=== PATIENT | female | born 1965 | race Caucasian/White ===

== ENCOUNTER 2021-11-29 16:18 | Emergency (ER) | payer SELFPAY ==
[~2021-11-29] VITALS: Ht 160 cm; Wt 56.6 kg
[2021-11-29] MEDS ORDERED: LORazepam 0.5 MG (ATIVAN) TABLET PO STA (16:45)
--- NOTE | 2021-11-29 16:49 | ED Psychosocial ---
General Chief Complaint: Psych/Social Disorder Stated Complaint: PANIC ATTACK Nursing Triage Note: PT AMB TO [facility] 8 WITH COMPLAINT OF ANXIETY. STATES TODAY SHE FEELS LIKE SHE CANT FUNCTION DUE TO HER ANXIETY. TAKES ANXIETY MEDS AT HOME. Source: patient Exam Limitations: no limitations (MOOSE VILLARREAL) History of Present Illness Date Seen by Provider: Nov 29, 2021 Time Seen by Provider: 16:46 Initial Comments Patient is a 56-year-old female with a history of anxiety, depression, PTSD who presents to ED for increased anxiety. She states she is concerned that she is having a panic attack. Woke up this morning feeling anxious. Not able to function at home secondary to the anxiety. She states she feels jittery, feels "foogy". She is currently on Abilify, Wellbutrin, remeron by physician at [facility]. Patient states that she has had similar type panic attacks in the past. She has no current pain. No hallucinations, thoughts of wanting to hurt herself or others. She is requesting some medication to help with her panic attack. She does not want to be evaluated by behavioral health. Denies any drug use or alcohol use. Denies chest pain, shortness of breath, nausea, vomiting, diarrhea (MOOSE VILLARREAL) Allergies and Home Medications Allergies Coded Allergies: No Known Drug Allergies (Unverified , 11/29/21) Patient Home Medication List Home Medication List Reviewed: Yes (MOOSE VILLARREAL) Hydroxyzine HCl (Hydroxyzine HCl) 50 Mg Tablet, 50 MG PO Q6H PRN for ANXIETY Prescribed by: CAMILLE JARRELL on 11/29/21 2376 Review of Systems Constitutional: No chills, No diaphoresis, No malaise, No weakness EENTM: No blurred vision, No double vision Respiratory: No cough, No dyspnea on exertion Cardiovascular: No edema Gastrointestinal: No abdominal pain, No diarrhea, No nausea, No vomiting Genitourinary: No decreased output Musculoskeletal: No back pain, No gout Psychiatric/Neurological: Denies Anxiety, Denies Depressed (MOOSE VILLARREAL) All Other Systems Reviewed Negative Unless Noted: Yes (MOOSE VILLARREAL) Past Rkjikab-Bczyky-Kqcwcv Hx Patient Social History Tobacco Use?: Yes Tobacco type used: Cigarettes Smoking Status: Current Everyday Smoker Use of E-Cig and/or Vaping dev: No Substance use?: Yes Substance type: Marijuana Alcohol Use?: No Pt feels they are or have been: No (MOOSE VILLARREAL) Physical Exam Vital Signs - First Documented 11/29/21 16:30 Pulse 87 Resp 16 B/P (MAP) 136/86 (103) Pulse Ox 99 O2 Delivery Room Air (DOROTEO ISIDRO MD) Capillary Refill : Less Than 3 Seconds (MOOSE VILLARREAL) Height, Weight, BMI Height: '" Weight: lbs. oz. kg; 22.00 BMI Method: General Appearance: WD/WN, no apparent distress HEENT: PERRL/EOMI, normal ENT inspection, TMs normal, pharynx normal Neck: non-tender, full range of motion Respiratory: chest non-tender, lungs clear, normal breath sounds, no respiratory distress, no accessory muscle use Cardiovascular: regular rate, rhythm, no edema, no gallop, no JVD Gastrointestinal: normal bowel sounds, non tender, soft, no organomegaly Extremities: normal range of motion, non-tender, normal inspection, no pedal edema, no calf tenderness Neurologic/Psychiatric: pharmaceutical officer II-XII nml as tested, no motor/sensory deficits, alert, normal mood/affect, oriented x 3 Appearance/Memory: appropriate appearance Behavior/Eye Contact: cooperative Thoughts/Hallucinations: normal thought pattern Skin: normal color, warm/dry Lymphatic: no adenopathy (MOOSE VILLARREAL) Progress/Results/Core Measures Results/Orders Vital Signs/I&O 11/29/21 11/29/21 16:30 18:09 Pulse 87 87 Resp 16 16 B/P (MAP) 136/86 (103) 136/86 Pulse Ox 99 99 O2 Delivery Room Air Room Air (DOROTEO ISIDRO MD) Blood Pressure Mean: 103 Departure Communication (PCP) Patient was tearful during exam. She states she woke up feeling anxious concern for panic attack. She reports similar symptoms in the past. She is currently on medication for PTSD, anxiety and depression. Patient has no suicidal homicidal thoughts. No active hallucinations. Denies any drug use or alcohol's. She has no chest pain, shortness of breath, fever, chills. Patient is cooperative. Patient appears in no acute distress. She is requesting some for her anxiety at this time. She was given a dose of Ativan 1 mg p.o. with resolution of symptoms. Did offer behavioral health assessment but patient states she will follow-up with here pcp ([facility]). Patient currently playing on her phone. She appears in no acute distress. Patient was observed and was smiling at discharge. Patient is strongly recommended to follow-up outpatient Richard with her PCP for further evaluation and medication adjustments as needed. If any worsening symptoms return back to ED for further evaluation. Patient at discharge was requesting something different to help with anxiety. Discussed with patient I do not typically prescribe medication for anxiety but may try hydroxyzine. But still she needs a follow-up with her [facility] for further evaluation. (MOOSE VILLARREAL) Impression Primary Impression: Anxiety Disposition: 01 HOME, SELF-CARE Condition: Stable Departure-Patient Inst. Decision time for Depature: 16:53 (MOOSE VILLARREAL) Referrals: [facility] Patient Instructions: Anxiety, Adult ED Add. Discharge Instructions: If continued having symptoms need to follow-up with [place] [facility]. All discharge instructions reviewed with patient and/or family. Voiced understanding. Scripts Hydroxyzine HCl (Hydroxyzine HCl) 50 Mg Tablet 50 MG PO Q6H PRN for ANXIETY, #12 TAB Prov: MOOSE VILLARREAL 11/29/21 ATTENDING PHYSICIAN NOTE: I was physically present as attending physician in the emergency department during the care of this patient, but I was not directly involved in the decision making or delivery of care for this patient. (DOROTEO ISIDRO MD) MOOSE VILLARREAL Nov 29, 2021 16:49 DOROTEO ISIDRO MD Nov 29, 2021 21:04
[2021-11-29] MEDS ORDERED: HYDR50TA76 PO (18:05)
[2021-11-29 18:09] VITALS: BP 136/86
== END 2021-11-29 18:09 | disposition home or self-care (01) ==
LOC: ER 16:22
DX: F41.0 Panic disorder [episodic paroxysmal anxiety] (principal); F43.10 Post-traumatic stress disorder, unspecified; F32.A Depression, unspecified; Z79.899 Other long term (current) drug therapy; F17.210 Nicotine dependence, cigarettes, uncomplicated
CPT/HCPCS: 99283

== ENCOUNTER 2021-12-01 14:01 | Emergency (ER) | payer SELFPAY ==
[~2021-12-01] VITALS: Ht 160 cm; Wt 54.0 kg
[~2021-12-01 14:01] MED LIST: DESV100T PO; HYDR50TA76 PO; TRZ50T PO
[2021-12-01 14:10] VITALS: BP 117/109
[2021-12-01] MEDS ORDERED: BUSP15TA60 PO (14:31)
--- NOTE | 2021-12-01 14:31 | ED Psychosocial ---
General Chief Complaint: Psych/Social Disorder Stated Complaint: ANXIETY Nursing Triage Note: ARRIVED VIA AMB WITH COMPLAINTS OF ANXIETY STARTING X2 DAYS AGO. Source: patient Exam Limitations: no limitations History of Present Illness Date Seen by Provider: Dec 01, 2021 Time Seen by Provider: 13:10 Initial Comments Patient is a 56-year-old female history of drug and alcohol abuse, 10 months clean also history of anxiety and depression presents with increasing anxiety over the last couple of days. Was last seen in the emergency department 2 days ago. Given a prescription for hydroxyzine she states she took 1 this morning but it did not help and she feels like it made it worse. She states "I am crawling out of my skin". She also states "I cannot function". She denies suicidal or homicidal ideation. She denies auditory or visual hallucinations. She is followed with [facility]. She was offered behavioral health assessment 2 days ago but declined. She was treated with 1 mg of Ativan in the ED and had improvement in symptoms. No recent illnesses, fevers, chills, chest pain, cough or congestion. No problems with bowel or bladder. She is requesting the same medication she was given 2 days ago. I offered to restart her on her BuSpar. She states she feels like she needs a larger dose. She was taken off BuSpar several months ago. All other review of systems reviewed and negative except as stated Timing/Duration: other (2 days) Severity: moderate Associated Symptoms: anxiety, impaired concentration Allergies and Home Medications Allergies Coded Allergies: No Known Drug Allergies (Unverified , 11/29/21) Patient Home Medication List Home Medication List Reviewed: Yes Buspirone HCl (Buspirone HCl) 15 Mg Tablet, 15 MG PO BID Prescribed by: ANGELY CLARKE on 12/01/21 1431 Hydroxyzine HCl (Hydroxyzine HCl) 50 Mg Tablet, 50 MG PO Q6H PRN for ANXIETY Prescribed by: CAMILLE JARRELL on 11/29/21 2176 Review of Systems Constitutional: see HPI EENTM: no symptoms reported Respiratory: no symptoms reported Cardiovascular: no symptoms reported Gastrointestinal: no symptoms reported Genitourinary: no symptoms reported Musculoskeletal: no symptoms reported Skin: no symptoms reported Psychiatric/Neurological: Anxiety, Emotional Problems All Other Systems Reviewed Negative Unless Noted: Yes Past Hxatqjr-Quujaf-Cjnalg Hx Patient Social History Smoking Status: Current Everyday Smoker Substance use?: No Alcohol Use?: No Immunizations Up To Date Second COVID19 Vaccination Sahil: UNKNOWN DATE COVID19 Vaccine [employer]: KALIEA Physical Exam Vital Signs - First Documented 12/01/21 14:10 Temp 35.7 Pulse 96 Resp 16 B/P (MAP) 117/109 (112) Pulse Ox 97 O2 Delivery Room Air Capillary Refill : Less Than 3 Seconds Height, Weight, BMI Height: '" Weight: lbs. oz. kg; 21.00 BMI Method: General Appearance: WD/WN, mild distress (anxious) HEENT: PERRL/EOMI Neck: full range of motion Respiratory: lungs clear, normal breath sounds, no respiratory distress, no accessory muscle use Cardiovascular: regular rate, rhythm Gastrointestinal: soft Extremities: normal range of motion, normal inspection Neurologic/Psychiatric: alert, oriented x 3 Appearance/Memory: appropriate appearance, appropriate insight, neat Behavior/Eye Contact: cooperative, good eye contact, normal speech Thoughts/Hallucinations: normal thought pattern, no apparent hallucination, other (ANXIOUS) Skin: normal color, warm/dry Progress/Results/Core Measures Results/Orders My Orders Orders - ANGELY CLARKE MD Buspirone Tablet (Buspar Tablet) (12/01/21 14:45) Alprazolam Tablet (Xanax Tablet) (12/01/21 14:32) Medications Given in ED Current Medications Medications Dose Ordered Sig/Marsha Route Start Time Stop Time Status Last Admin Dose Admin Buspirone HCl 15 mg ONCE ONCE PO 12/01/21 14:45 12/01/21 14:46 DC 12/01/21 14:50 15 MG Vital Signs/I&O 12/01/21 14:10 Temp 35.7 Pulse 96 Resp 16 B/P (MAP) 117/109 (112) Pulse Ox 97 O2 Delivery Room Air Blood Pressure Mean: 112 Progress Progress Note : Time: 15:19 Progress Note patient ambulated to the bathroom after meds. She states that she was feeling a little better. Nurse went to discharge her and noted the patient had eloped without discharge instructions or follow up information. Departure Impression Primary Impression: Anxiety Disposition: 07 AGAINST MEDICAL ADVICE Condition: Against Medical Advice Departure-Patient Inst. Decision time for Depature: 14:28 Referrals: [facility],LOCAL PHYSICIAN (PCP) Primary Care Physician Patient Instructions: Anxiety, Adult (DC) Add. Discharge Instructions: Restart your BuSpar at 15 mg twice daily. Call on Friday for a follow-up appointment with [facility] for further management of your anxiety. Drink plenty of fluids to stay well-hydrated. Start attending your meetings again this weekend. Return to the emergency department for any new, concerning or emergent complaints. Scripts Buspirone HCl (Buspirone HCl) 15 Mg Tablet 15 MG PO BID, #30 TAB Prov: ANGELY CLARKE MD 12/01/21 Copy Copies To 1: DEVON DOMINGUEZ KATHRYN M MD Dec 01, 2021 14:31
[2021-12-01] MEDS ORDERED: ALPRAZolam 0.5 MG (XANAX) TAB PO STA (14:32)
[2021-12-01] MEDS ORDERED: busPIRone 15 MG (BUSPAR) TABLET PO ONE (14:45)
== END 2021-12-01 15:10 | disposition left against medical advice (07) ==
LOC: EDUNIT# 14:01 → ER 14:03
DX: F41.9 Anxiety disorder, unspecified (principal); F17.200 Nicotine dependence, unspecified, uncomplicated; Z28.311 Partially vaccinated for COVID-19
CPT/HCPCS: 99281

== ENCOUNTER 2021-12-02 12:13 | Emergency (ER) | payer SELFPAY ==
[~2021-12-02] VITALS: Ht 160 cm; Wt 56.7 kg
[~2021-12-02 12:13] MED LIST changes: +BUSP15TA60 PO
--- NOTE | 2021-12-02 12:17 | ED General ---
General Stated Complaint: ANXIETY History of Present Illness Date Seen by Provider: Dec 02, 2021 Time Seen by Provider: 12:57 Initial Comments This is a 56 yo female who presented for c/o anxiety. Unable to picker packer her medications. This is a well-appearing 56-year-old female who presented to the ER for complaints of anxiety. States that she has been evaluated and treated in this ER for the past 2 days for the same complaint. She was given BuSpar 15 mg p.o. yesterday and a Xanax 0.5 mg. States that the BuSpar has yet to start working and she did not feel that the Xanax was very effective. She would like to receive Ativan 1 mg that she received the first day she presented. Denies any chest pain, shortness of breath, fever, chills, cough, abdominal pain, nausea, vomiting, diarrhea. No new symptoms. Allergies and Home Medications Allergies Coded Allergies: No Known Drug Allergies (Unverified , 11/29/21) Patient Home Medication List Home Medication List Reviewed: Yes Buspirone HCl (Buspirone HCl) 15 Mg Tablet, 15 MG PO BID Prescribed by: ANGELY CLARKE on 12/01/21 1431 Hydroxyzine HCl (Hydroxyzine HCl) 50 Mg Tablet, 50 MG PO Q6H PRN for ANXIETY Prescribed by: CAMILLE JARRELL on 11/29/21 1805 Last Action: Last Taken Edited Review of Systems Review of Systems Constitutional: see HPI EENTM: no symptoms reported Respiratory: see HPI Cardiovascular: no symptoms reported Gastrointestinal: no symptoms reported Genitourinary: no symptoms reported Musculoskeletal: no symptoms reported Skin: no symptoms reported Psychiatric/Neurological: Anxiety Hematologic/Lymphatic: No Symptoms Reported Immunological/Allergic: no symptoms reported Past Ufrbvno-Tcodut-Emczkt Hx Immunizations Up To Date Second COVID19 Vaccination Sahil: UNKNOWN DATE Physical Exam Vital Signs Vital Signs - First Documented 12/02/21 12:36 Temp 36.0 Pulse 91 Resp 26 B/P (MAP) 130/93 (105) Pulse Ox 100 O2 Delivery Room Air Capillary Refill : Height, Weight, BMI Height: '" Weight: lbs. oz. kg; 21.00 BMI Method: General Appearance: No Apparent Distress, Anxious Eyes: Bilateral Eye Normal Inspection, Bilateral Eye PERRL, Bilateral Eye EOMI HEENT: PERRL/EOMI, Normal ENT Inspection, Pharynx Normal, Moist Mucous Membranes Neck: Full Range of Motion, Normal Inspection, Non Tender, Supple Respiratory: Lungs Clear, Normal Breath Sounds, No Accessory Muscle Use, No Respiratory Distress Cardiovascular: Regular Rate, Rhythm, No Murmur, Normal Peripheral Pulses Gastrointestinal: Normal Bowel Sounds, Non Tender, Soft Extremity: Normal Capillary Refill, Normal Inspection, Normal Range of Motion, No Calf Tenderness Neurologic/Psychiatric: Alert, Oriented x3, No Motor/Sensory Deficits, Normal Mood/Affect, natural sciences manager II-XII Norm as Tested Skin: Normal Color, Warm/Dry Progress/Results/Core Measures Suspected Sepsis SIRS Temperature: Pulse: Respiratory Rate: Blood Pressure / Mean: Results/Orders My Orders Orders - JS NICOLE APRN Buspirone Tablet (Buspar Tablet) (12/02/21 13:15) Alprazolam Tablet (Xanax Tablet) (12/02/21 13:15) Medications Given in ED Current Medications Medications Dose Ordered Sig/Marsha Route Start Time Stop Time Status Last Admin Dose Admin Alprazolam 0.5 mg ONCE ONCE PO 12/02/21 13:15 12/02/21 13:35 DC 12/02/21 13:42 0.5 MG Buspirone HCl 15 mg ONCE ONCE PO 12/02/21 13:15 12/02/21 13:35 DC 12/02/21 13:42 15 MG Vital Signs/I&O 12/02/21 12:36 Temp 36.0 Pulse 91 Resp 26 B/P (MAP) 130/93 (105) Pulse Ox 100 O2 Delivery Room Air Capillary Refill : Progress Note : Progress Note Patient examined and in no acute distress. She is very anxious that she has yet to be able to picker packer her medications as the pharmacy she chose to have them submitted is closed today. We will go ahead and give her dose of BuSpar 15 mg and a Xanax 0.5 mg in the ER, discussed having close follow-up with her primary care provider next week for persistent symptoms. She can pick her prescriptions up tomorrow at the pharmacy. Discharge plan of care reviewed and she is agreeable with plan. Departure Impression Primary Impression: Anxiety Disposition: 01 HOME, SELF-CARE Condition: Stable Departure-Patient Inst. Decision time for Depature: 13:12 Referrals: NO,LOCAL PHYSICIAN (PCP/Family) Primary Care Physician Patient Instructions: Anxiety, Adult (DC) Add. Discharge Instructions: Plan: 1. Follow up as previously directed. 2. boiler operators supervisor your Buspar first thing in the morning and continue as directed. 3. Return for any worsening symptoms. JS NICOLE WASHING MACHINE INSTALLER Dec 02, 2021 12:17
[2021-12-02 12:36] VITALS: BP 130/93
[2021-12-02] MEDS ORDERED: ALPRAZolam 0.5 MG (XANAX) TAB PO ONE (13:15)
[2021-12-02] MEDS ORDERED: busPIRone 15 MG (BUSPAR) TABLET PO ONE (13:15)
== END 2021-12-02 13:44 | disposition home or self-care (01) ==
LOC: EDUNIT# 12:13 → ER 12:15
DX: F41.9 Anxiety disorder, unspecified (principal)
CPT/HCPCS: 99281